=== PATIENT | female | born 1955 | race Caucasian/White ===

== ENCOUNTER 2018-04-07 11:45 | Outpatient (CLI) | payer OTHER ==
--- NOTE | 2018-04-10 11:06 | OP Clinic Progress Note ---
REASON FOR VISIT: Beverley Flores returns for follow up on her seropositive rheumatoid arthritis of multiple sites. She has had her illness for 3 years now and she is doing well on her present regimen. She had 1 episode of lower leg pain which resolved with doubling up on her prednisone. It involved mainly her groin and anterior thigh region. Otherwise, hands and wrists, elbows, shoulders , hips, knees, ankles and feet are presently doing well. No swelling. No new deformities. PAST MEDICAL HISTORY: 1. Coronary artery disease. 2. Hypertension. 3. Hyperlipidemia. 4. Peripheral vascular disease. 5. Hodgkin's. 6. Diabetes. PAST SURGICAL HISTORY: 1. Mitral valve repair. 2. Coronary artery bypass grafting. PRESENT MEDICATIONS: 1. Prednisone 2.5 mg daily. 2. Folic acid 1 mg daily. 3. Metformin 500 mg daily. 4. Methotrexate 10 tablets weekly. 5. Omeprazole 20 mg daily. 6. Estrace 0.5 mg. 7. Metoprolol succinate 25 mg daily. 8. Zyrtec as needed. 9. Provera 5 mg daily. 10. Hydrochlorothiazide 25 mg daily. 11. Aspirin 81 mg daily. 12. Pravastatin 40 mg at bedtime. 13. Potassium chloride. 14. Losartan 50 mg daily. ALLERGIES: Patient has no known drug allergies. SOCIAL HISTORY: No smoking. No drinking. She is . REVIEW OF SYSTEMS: She has had no fevers, chills, or sweats. No change in her weight. She has had no dry eyes or dry mouth. No difficulty swallowing. No chest pain, shortness of breath, cough, wheezing, nausea, vomiting, or diarrhea. No skin rashes, hives, photosensitivity or color changes in her hands or feet in the cold. No numbness or tingling of her extremities. Her diabetes has improved. PHYSICAL EXAMINATION: GENERAL: She looks well. VITAL SIGNS: Height: 5 feet 3-1/2 inches. Weight: 170. T: 97.8, R: 18, heart rate 74, BP: 140/60. HEENT: Sclerae are anicteric. Conjunctivae are pink. No stomatitis or glossitis. LUNGS: Clear bilaterally with no crackles or wheezing. HEART: Regular rate and rhythm. ABDOMEN: Soft and nontender. VASCULAR: No edema or cyanosis. PERIPHERAL JOINTS: No synovitis at the DIPs, PIPs, MCPs, wrists, elbows, shoulders, hips, knees, ankles, and feet. Skin: No rashes or nodules. LABORATORY: She just had blood work done which she brings back. In the chart, her last hemoglobin A1C was 6.6. Her liver functions look normal. IMPRESSION: 1. Seropositive rheumatoid arthritis of multiple sites. Doing well on her present regimen. 2. High risk drug. She just had labs done today. She is scheduled for labs in June. PLAN: I will see her back in early July. Thank you very much. Best regards, CHECO
== END 2018-04-07 12:33 ==
LOC: RHEU 11:45
PROVIDERS: ATTEND Internal Medicine
DX: M05.9 Rheumatoid arthritis with rheumatoid factor, unspecified (principal); Z79.899 Other long term (current) drug therapy
CPT/HCPCS: 99213; 99214